=== PATIENT | female | born 1965 | race Caucasian/White ===

== ENCOUNTER 2018-08-18 15:40 | Emergency (ER) | payer SELFPAY ==
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
[2018-08-18] MEDS ORDERED: Norco 10/325 MG Tablet PO ONE (17:45)
[2018-08-18] MEDS ORDERED: Cyclobenzaprine 10 MG PO ONE (17:46)
[2018-08-18] MEDS ORDERED: Cyclobenzaprine 10 MG ONE (17:49)
[2018-08-18] MEDS ORDERED: Norco 10/325 MG Tablet ONE (17:50)
[2018-08-18 17:54] VITALS: BP 213/97
[2018-08-18 17:56] VITALS: PULSE 60; O2SAT 96
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
== END 2018-08-18 18:18 | disposition home or self-care (01) ==
LOC: ED 15:40
DX: S16.1XXA Strain of muscle, fascia and tendon at neck level, initial encounter (principal); M54.2 Cervicalgia; R51 Headache; V43.62XA Car passenger injured in collision with other type car in traffic accident, initial encounter
CPT/HCPCS: 70450; 72125; 99285; A9270-GY